=== PATIENT | female | born 1945 | race Caucasian/White ===

== ENCOUNTER 2018-03-22 15:45 | Emergency (ER) | payer MEDICARE, OTHER ==
[~2018-03-22] VITALS: Ht 149.9 cm; Wt 44.0 kg
[2018-03-22] MEDS ORDERED: aspirin 81mg tab.chew PO ONE (15:55)
[2018-03-22] MEDS ORDERED: diltiazem 5mg/ml 5ml inj. IV ONE ×2 (15:55→16:35)
[2018-03-22] MEDS ORDERED: NO HOME MEDS (15:59)
[2018-03-22 16:21] LABS: BASOPHILS # (AUTO) 0.1 X10'3 (0-0.2); BASOPHILS % (AUTO) 0.6 % (0-1); EOSINOPHILS # (AUTO) 0.1 X10'3 (0-0.9); EOSINOPHILS % (AUTO) 1.5 % (0-6); HEMATOCRIT 41.9 % (35.0-45.0); HEMOGLOBIN 13.8 g/dl (12.0-16.0); LYMPHOCYTES # (AUTO) 2.2 X10'3 (1.1-4.8); LYMPHOCYTES % (AUTO) 22.8 % (21-51); MEAN CORPUSCULAR HEMOGLOBIN 28.1 PG (27.0-31.0); MEAN CORPUSCULAR VOLUME 85.4 FL (78-98); MEAN PLATELET VOLUME 7.6 FL (7.4-10.4); MONOCYTES # (AUTO) 0.6 X10'3 (0-0.9); MONOCYTES % (AUTO) 6.6 % (2-12); NEUTROPHILS # (AUTO) 6.7 X10'3 (1.8-7.7); NEUTROPHILS % (AUTO) 68.5 % (42-75); PLATELET COUNT 270 X10'3 (140-440); RED BLOOD COUNT 4.91 X10'6 (4.20-5.60); RED CELL DISTRIBUTION WIDTH 14.6 % (11.5-14.5); WHITE BLOOD COUNT 9.8 X10'3 (4.5-11.0)
[2018-03-22 16:34] LABS: ALANINE AMINOTRANSFERASE 27 U/L (12-78); ALBUMIN 3.2 G/DL (3.4-5.0); ALBUMIN/GLOBULIN RATIO 0.8 (1.1-1.5); ALKALINE PHOSPHATASE 91 IU/L (46-116); ANION GAP 11 (8-16); ASPARTATE AMINO TRANSFERASE 26 U/L (10-37); BILIRUBIN,TOTAL 0.3 MG/DL (0.1-1.0); BLOOD UREA NITROGEN 13 MG/DL (7-18); BUN/CREATININE RATIO 12.9 (6.6-38.0); CALCIUM 8.7 MG/DL (8.5-10.1); CHLORIDE 104 MMOL/L (99-107); CREATININE 1.01 MG/DL (0.40-0.90); GLUCOSE 138 MG/DL (70-104); POTASSIUM 3.8 MMOL/L (3.5-5.1); SODIUM 141 MMOL/L (135-145); TOTAL CARBON DIOXIDE 26.5 MMOL/L (24-32); TOTAL PROTEIN 7.2 G/DL (6.4-8.2); eGFR 54 ML/MIN
[2018-03-22 16:42] LABS: PHOSPHORUS 3.4 MG/DL (2.3-4.5)
[2018-03-22] MEDS ORDERED: normal saline 1000ML IV soln IVB ONE (16:45)
[2018-03-22 16:49] LABS: PARTIAL THROMBOPLASTIN TIME 27 SECONDS (22-32)
[2018-03-22] MEDS ORDERED: ondansetron/PF 4mg/2ml inj IV PRN (17:00)
[2018-03-22] MEDS ORDERED: apixaban 5mg tablet PO ONE (17:00)
[2018-03-22] MEDS ORDERED: METO25TA6 PO (18:08)
[2018-03-22] MEDS ORDERED: APIX5TAB3 PO (18:08)
[2018-03-22 18:25] VITALS: BP 115/63
[2018-03-22] MEDS ORDERED: diltiazem 30mg tablet PO SCH (20:00)
[2018-03-23] MEDS ORDERED: apixaban 5mg tablet PO SCH (08:00)
== END 2018-03-22 18:32 | disposition home or self-care (01) ==
LOC: ER 15:46 → ED HOLD 16:59 → UNDOADMIN 16:59 → UNDODISIN 18:30
DX: I48.91 Unspecified atrial fibrillation (principal); F17.200 Nicotine dependence, unspecified, uncomplicated; R07.89 Other chest pain
CPT/HCPCS: 36415; 71045; 80053; 83735; 83880; 84100; 84484; 85025; 85610; 85730; 93005; 96374; 96376; 99285; G0378; J3490